=== PATIENT | male | born 1975 | race American Indian/Alaskan Native ===

== ENCOUNTER 2018-04-22 19:34 | Emergency (ER) | payer SELFPAY ==
[2018-04-22 19:50] VITALS: BP 123/75
--- NOTE | 2018-04-23 00:26 | Emergency Department Report ---
ED Rash HPI - HPI Chief Complaint: Urogenital-Male Stated Complaint: STD CHECK UP Time Seen by Provider: 04/22/18 23:22 Duration: 2 Days Location: Chest, Back Suspected Cause: Unknown Rash Symptoms: Yes Itching, No Facial Swelling, No Breathing Difficulties, No Choking Sensation, No Wheezing/Dyspnea, No Peeling, No Fever Severity: moderate (42 year old white male with a pruritic rash to his back worried of possible STD exposure. Denies any penile discharge, testicular pain , dysuria, hematuria, testicular swelling or abdominal pain) ED Review of Systems ROS: Stated complaint: STD CHECK UP Other details as noted in HPI Constitutional: denies: chills, fever Eyes: denies: eye pain, eye discharge, vision change ENT: denies: ear pain, throat pain Respiratory: denies: cough, shortness of breath, wheezing Cardiovascular: denies: chest pain, palpitations Endocrine: no symptoms reported Gastrointestinal: denies: abdominal pain, nausea, diarrhea Genitourinary: denies: urgency, dysuria Musculoskeletal: denies: back pain, joint swelling, arthralgia Skin: rash, pruritus. denies: lesions, change in hair/nails Neurological: denies: headache, weakness, paresthesias, confusion, vertigo Psychiatric: denies: anxiety, depression Hematological/Lymphatic: denies: easy bleeding, easy bruising ED Past Medical Hx - Past Medical History Previous Medical History?: Yes Hx Asthma: Yes Additional medical history: MS - Surgical History Past Surgical History?: Yes Additional Surgical History: hernia - Social History Smoking Status: Never Smoker Substance Use Type: Marijuana - Medications Home Medications: Home Medications Medication Instructions Recorded Confirmed Last Taken Type Chlorhexidine Gluconate [Hibiclens] 236 ml TP BID #236 liquid 04/23/18 Unknown Rx cephALEXin [Keflex] 500 mg PO Q8HR #21 cap 04/23/18 Unknown Rx Rash Exam - Exam General: Vital signs noted. No distress. Alert and acting appropriately. HEENT: No Periorbital Edema, No Conjuctival Injection, No Chemosis, No Perioral Edema, No Tongue Edema, No Uvular Edema, No Compromised Airway, No Drooling Lungs: Yes Good Air Exchange (Normal Breath Sounds), No Wheezes, No Ronchi, No Stridor, No Cough, No Labored Respirations, No Retractions, No Use of Accessory Muscles, No Other Abnormal Lung Sounds Heart: Yes Regular, No Murmur Skin: Yes Erythema (pustular follicular rash to the back. No lymphangitis or induration noted. No rash to the palms or soles or genital area.) Other: Positive: Abdomen Normal, Neurologic Normal, Musculoskeletal Normal ED Course Vital Signs 04/22/18 19:39 Temperature 98.1 F Pulse Rate 86 Respiratory 18 Rate Blood Pressure 123/75 O2 Sat by Pulse 97 Oximetry Critical care attestation.: If time is entered above; I have spent that time in minutes in the direct care of this critically ill patient, excluding procedure time. ED Disposition Clinical Impression: Rash and nonspecific skin eruption Disposition: DC-01 TO HOME OR SELFCARE Is pt being admited?: No Does the pt Need Aspirin: No Condition: Stable Instructions: Acute Rash (ED), Folliculitis (ED) Prescriptions: cephALEXin [Keflex] 500 mg PO Q8HR #21 cap Chlorhexidine Gluconate [Hibiclens] 236 ml TP BID #236 liquid Referrals: [facility] [Provider Group] - 3-5 Days
== END 2018-04-23 00:45 | disposition home or self-care (01) ==
LOC: ED 19:34
DX: R21 Rash and other nonspecific skin eruption (principal); L29.9 Pruritus, unspecified; J45.909 Unspecified asthma, uncomplicated; F12.10 Cannabis abuse, uncomplicated
CPT/HCPCS: 99282